=== PATIENT | female | born 1995 | race Caucasian/White ===

== ENCOUNTER 2020-11-11 13:19 | Outpatient (CLI) | payer BC ==
[2020-11-11 14:01] LABS: BHCG - Serum Negative (NEGATIVE); Pregs Control Background? CLEAR/WHITE (CLR/WHITE); Pregs Control Bar Appear? YES (CONTROL BAR)
== END 2020-11-11 13:20 | disposition home or self-care (01) ==
LOC: RAD 13:19
PROVIDERS: ATTEND Obstetrics & Gynecology Gynecology
DX: Z32.00 Encounter for pregnancy test, result unknown (principal); N94.6 Dysmenorrhea, unspecified; N92.6 Irregular menstruation, unspecified
CPT/HCPCS: 36415; 76856; 84703

== ENCOUNTER 2020-11-12 16:02 | Outpatient (CLI) | payer BC ==
[~2020-11-12 16:02] MED LIST: Iopamidol 300 61% 50 ML VIAL FS ONE
== END 2020-11-12 16:03 | disposition home or self-care (01) ==
LOC: RAD 16:02
PROVIDERS: ATTEND Obstetrics & Gynecology Gynecology
DX: N94.6 Dysmenorrhea, unspecified (principal); N92.6 Irregular menstruation, unspecified; N83.8 Other noninflammatory disorders of ovary, fallopian tube and broad ligament
CPT/HCPCS: 58340; 74740; Q9967